=== PATIENT | male | born 1985 | race American Indian/Alaskan Native ===

== ENCOUNTER 2021-10-24 07:16 | Emergency (ER) | payer BC ==
[2021-10-24 09:34] LABS: Basophils # (Auto) 0.1 K/mm3 (0.0-0.1); Eosinophils # (Auto) 0.2 K/mm3 (0.0-0.4); Hematocrit 42.5 % (35.5-45.6); Hemoglobin 14.2 gm/dl (11.8-15.2); Lymphocytes # (Auto) 1.7 K/mm3 (1.2-5.4); Lymphocytes % (Auto) 22.2 % (13.4-35.0); Mean Corpuscular HGB Conc 33 % (32-34); Mean Corpuscular Volume 87 fl (84-94); Monocytes % (Auto) 12.4 % (0.0-7.3); Platelet Count 299 K/mm3 (140-440); Red Blood Count 4.92 M/mm3 (3.65-5.03)
[2021-10-24 09:58] LABS: Alanine Aminotransferase 20 units/L (7-56); Albumin 4.4 g/dL (3.9-5); BUN/Creatinine Ratio 17; Blood Urea Nitrogen 15 mg/dL (9-20); Calcium 9.5 mg/dL (8.4-10.2); Hemolysis Index 3
[2021-10-24 10:03] LABS: Bilirubin,Direct < 0.2 mg/dL (0-0.2)
--- NOTE | 2021-10-24 12:08 | Event Note ---
ED Screening Note ED Screening Note: cc n/v/diarrhea night sweats pmh none psh none rx none This initial assessment/diagnostic orders/clinical plan/treatment(s) is/are subject to change based on patients health status, clinical progression and re- assessment by fellow clinical providers in the ED. Further treatment and workup at subsequent clinical providers discretion. Patient/guardian urged not to elope from the ED as their condition may be serious if not clinically assessed and managed. Initial orders include: labs/urine
--- NOTE | 2021-10-24 13:31 | Ultrasound Report ---
US abdomen limited INDICATION / CLINICAL INFORMATION: abd pain inc lipase. COMPARISON: No relevant prior imaging study available. FINDINGS: PANCREAS: No significant abnormality. ABDOMINAL AORTA: No significant abnormality. IVC: No significant abnormality. LIVER: Liver measures 15.7 cm. The liver demonstrates increased echogenicity. No focal hepatic lesion . PORTAL VEIN: Normal hepatopedal blood flow in the main portal vein. GALLBLADDER: Gallbladder is partially contracted without evidence of acute abnormality. BILE DUCTS: Common bile duct measures 5 mm. No significant abnormality. RIGHT KIDNEY: No significant abnormality visualized. FREE FLUID: None. ADDITIONAL FINDINGS: None. IMPRESSION: 1. Diffuse increased hepatic echogenicity, nonspecific but most likely reflecting hepatic steatosis. 2. No other significant abnormality. Signer Name: Jose Kevin MD Signed: 10/24/2021 1:27 PM Workstation Name: [id number]
--- NOTE | 2021-10-24 14:54 | Emergency Department Report ---
ED Abdominal Pain HPI - General Chief Complaint: Abdominal Pain Stated Complaint: VOMITING,DIARR Time Seen by Provider: 10/24/21 12:09 Source: patient Mode of arrival: Ambulatory Limitations: No Limitations - History of Present Illness Initial Comments: Patient is a 36-year-old male that comes to the emergency room today complaining of nausea vomiting and diarrhea. He has associated crampiness in his abdomen with his bowel movements. Patient denies fever or chills. Denies chest pain or shortness of breath. Patient denies dysuria. He is otherwise healthy. He takes no home medications. Patient ambulatory to the ER no acute distress MD Complaint: other -: Gradual, hour(s) Quality: cramping Consistency: intermittent Improves With: nothing Worsens With: nothing Associated Symptoms: denies other symptoms, nausea, vomiting, diarrhea. denies: fever, chills, constipation, dysuria, hematemesis, hematochezia, melena, hematuria, anorexia, syncope - Related Data Previous Rx's Medication Instructions Recorded Last Taken Type Ondansetron [Zofran Odt] 4 mg PO Q8HR PRN #10 tab.rapdis 10/24/21 Unknown Rx Allergies Allergy/AdvReac Type Severity Reaction Status Date / Time No Known Allergies Allergy Unverified 10/24/21 07:49 ED Review of Systems ROS: Stated complaint: VOMITING,DIARR Other details as noted in HPI Comment: All other systems reviewed and negative ED Past Medical Hx - Past Medical History Previous Medical History?: No - Surgical History Past Surgical History?: No - Family History Family history: no significant - Social History Smoking Status: Former Smoker Substance Use Type: None - Medications Home Medications: Home Medications Medication Instructions Recorded Confirmed Last Taken Type Ondansetron [Zofran Odt] 4 mg PO Q8HR PRN #10 tab.rapdis 10/24/21 Unknown Rx ED Physical Exam - General Limitations: No Limitations General appearance: alert, in no apparent distress - Head Head exam: Present: atraumatic, normocephalic - Eye Eye exam: Present: normal appearance - ENT ENT exam: Present: mucous membranes moist - Neck Neck exam: Present: normal inspection - Respiratory Respiratory exam: Present: normal lung sounds bilaterally. Absent: respiratory distress - Cardiovascular Cardiovascular Exam: Present: regular rate, normal rhythm. Absent: systolic murmur, diastolic murmur, rubs, gallop - GI/Abdominal GI/Abdominal exam: Present: soft, normal bowel sounds - Rectal Rectal exam: Present: deferred - Extremities Exam Extremities exam: Present: normal inspection - Back Exam Back exam: Present: normal inspection - Neurological Exam Neurological exam: Present: alert, oriented X3 - Psychiatric Psychiatric exam: Present: normal affect, normal mood - Skin Skin exam: Present: warm, dry, intact, normal color. Absent: rash ED Course Vital Signs 10/24/21 07:47 Temperature 98.3 F Pulse Rate 71 Respiratory 18 Rate Blood Pressure 121/79 [Left] O2 Sat by Pulse 97 Oximetry ED Medical Decision Making - Lab Data Result diagrams: 10/24/21 08:27 10/24/21 08:27 - Radiology Data Radiology results: report reviewed, image reviewed See report - Medical Decision Making Vital Signs 10/24/21 07:47 Temperature 98.3 F Pulse Rate 71 Respiratory 18 Rate Blood Pressure 121/79 [Left] O2 Sat by Pulse 97 Oximetry Lab Results 10/24/21 10/24/21 Range/Units 08:27 08:27 WBC 7.7 (4.5-11.0) K/mm3 RBC 4.92 (3.65-5.03) M/mm3 Hgb 14.2 (11.8-15.2) gm/dl Hct 42.5 (35.5-45.6) % MCV 87 (84-94) fl MCH 29 (28-32) pg MCHC 33 (32-34) % RDW 13.0 L (13.2-15.2) % Plt Count 299 (140-440) K/mm3 Lymph % (Auto) 22.2 (13.4-35.0) % Callahan % (Auto) 12.4 H (0.0-7.3) % Eos % (Auto) 2.0 (0.0-4.3) % Baso % (Auto) 1.0 (0.0-1.8) % Lymph # (Auto) 1.7 (1.2-5.4) K/mm3 Callahan # (Auto) 1.0 H (0.0-0.8) K/mm3 Eos # (Auto) 0.2 (0.0-0.4) K/mm3 Baso # (Auto) 0.1 (0.0-0.1) K/mm3 Seg Neutrophils % 62.4 (40.0-70.0) % Seg Neutrophils # 4.8 (1.8-7.7) K/mm3 Sodium 140 (137-145) mmol/L Potassium 4.4 (3.6-5.0) mmol/L Chloride 105.3 (98-107) mmol/L Carbon Dioxide 24 (22-30) mmol/L Anion Gap 15 mmol/L BUN 15 (9-20) mg/dL Creatinine 0.9 (0.8-1.3) mg/dL Estimated GFR > 60 ml/min BUN/Creatinine Ratio 17 % Glucose 109 H (75-100) mg/dL Calcium 9.5 (8.4-10.2) mg/dL Total Bilirubin 1.00 (0.1-1.2) mg/dL Direct Bilirubin < 0.2 (0-0.2) mg/dL Indirect Bilirubin 0.8 mg/dL AST 21 (5-40) units/L ALT 20 (7-56) units/L Alkaline Phosphatase 81 (35-129) units/L Total Protein 7.2 (6.3-8.2) g/dL Albumin 4.4 (3.9-5) g/dL Albumin/Globulin Ratio 1.6 % Lipase 71 H (13-60) units/L Labs noted. Ultrasound noted. UA noted. Ultrasound noted Patient has been advised to avoid alcohol. He is also been advised to have his increased lipase. He is to follow-up with PCP and GI. Patient has been in the ER for several hours today and has had no active nausea vomiting or diarrhea. He is ambulatory, nontoxic and taking p.o. Patient is being discharged home with discharge plan of care including diet, activity, medications and follow-up. He verbalizes understanding of plan of care. - Differential Diagnosis Kidney stone, UTI, pancreatitis Critical care attestation.: If time is entered above; I have spent that time in minutes in the direct care of this critically ill patient, excluding procedure time. ED Disposition Clinical Impression: Gastroenteritis, Elevated lipase Disposition: 01 HOME / SELF CARE / HOMELESS Is pt being admited?: No Does the pt Need Aspirin: No Condition: Stable Additional Instructions: avoid alcohol follow up with pcp for lab recheck next week referral below stay well hydrated with water Prescriptions: Ondansetron [Zofran Odt] 4 mg PO Q8HR PRN #10 tab.rapdis PRN Reason: Vomiting Referrals: HELGA LEMUS MD [Staff Physician] - 3-5 Days REYNA HARRIS MD [Staff Physician] - 3-5 Days Forms: Work/School Release Form(ED) Time of Disposition: 15:20
[2021-10-24] MEDS ORDERED: ONDANSETRON 4 MG ODT TAB PO ONE (15:18)
[2021-10-24 15:24] LABS: Bilirubin,Urine NEG (Negative); Blood,Urine SM (Negative); Color,Urine Yellow (Yellow); Protein,Urine <15 mg/dL mg/dL (Negative); Urobilinogen,Urine < 2.0 mg/dL (<2.0)
[2021-10-24 15:25] LABS: Mucus,Urine FEW /HPF
[2021-10-24 17:08] VITALS: BP 117/71
== END 2021-10-24 17:55 | disposition home or self-care (01) ==
LOC: ED 07:16
DX: K52.9 Noninfective gastroenteritis and colitis, unspecified (principal); E78.41 Elevated Lipoprotein(a); Z87.891 Personal history of nicotine dependence
CPT/HCPCS: 36415; 76705; 80048; 80076; 81001; 83690; 85025; 99284; J3490; Q0162